=== PATIENT | male | born 1965 ===

== ENCOUNTER 2024-05-11 09:11 | Outpatient (REF) | payer OTHER, SELFPAY ==
--- NOTE | ~2024-05-11 | XR_ITS ---
EXAMINATION: XR KNEE, RIGHT CLINICAL INFORMATION: Pain. COMPARISON: None available. TECHNIQUE: AP standing view of bilateral knees and 2 views of the right knee. FINDINGS: AP standing view of the right knee: Moderate narrowing of the medial compartment with mild narrowing of the lateral compartment. Small medial and lateral marginal osteophytes. Left knee: Mild narrowing of the medial and lateral compartments. Moderate left joint effusion. Large superior patellar spur with faint ossific/calcific calcifications along the suprapatellar tendon which is possibly thickened. Advanced degenerative changes in the left patellofemoral compartment with joint space narrowing and hypertrophic change. XR/XR knee RT 3V IMPRESSION: 1. Moderate degenerative changes right knee. 2. Advanced degenerative changes left patellofemoral compartment. 3. Moderate left joint effusion. 4. Large superior patellar spur with faint ossific/calcific calcifications along the suprapatellar tendon which is possibly thickened.
== END 2024-05-11 09:12 | disposition home or self-care (01) ==
LOC: HO.HOSX 09:11
PROVIDERS: Visit Provider Orthopaedic Surgery
DX: M17.31 Unilateral post-traumatic osteoarthritis, right knee (principal); M21.161 Varus deformity, not elsewhere classified, right knee
CPT/HCPCS: 73562

== ENCOUNTER 2024-05-11 12:34 | Outpatient (AMB) | payer OTHER, SELFPAY ==
--- NOTE | 2024-05-11 12:37 | MHC.OFFVIS ---
Vital Signs 05/11/24 12:50 Height 5 ft 9 in Weight 152 lb BMI 22.4 Intake Visit Reasons: [facility] [employer]-Right knee pain/possibly discuss surgery Intake Note: Jair is a 58 year old male who presents today as a new patient with complaints of right knee pain.Patient reports that his knee has been painful for many years now. He has had previous cortisone injections, last one being about 8 years ago. Has also had surgery on this knee due to a patella fracture. Allergies No Known Allergies Allergy (Verified 05/11/24 12:48) HPI HPI [facility] [facility] [employer]-Right knee pain/possibly discuss surgery: Details: Jair is a 58 year old male who presents today as a new patient with complaints of right knee pain.Patient reports that his knee has been painful for many years now. He has had previous cortisone injections and doesn't want more because he feels like they don't help are are just a band-aid . Has also had surgery on this knee due to a patella fracture many years ago. He is unable to walk for more than a few minutes because of pain. He limps everywhere and is frustrated that he cannot walk without pain. [facility] Surgical History (Updated 05/11/24 @ 12:50 by Tonja Mccoy [facility]) History of thumb surgery Hx of eye surgery H/O right knee surgery Physical Exam Vital Signs: BMI result Body Mass Index 22.4 Extrem Other: Moderate varus malalignment 10-120 deg motion medial and lateral compartment ttp dp+2 Results Reviewed Results Reviewed: I personally reviewed relevant radiographs. Severe post traumatic OA right knee, varus pattern Assessment & Plan Assessment & Plan (1) Post-traumatic osteoarthritis of knee: Code(s): M17.30 - Unilateral post-traumatic osteoarthritis, unspecified knee Category: Medical Plan: This ia a healthy 58 yo disable M with right knee pain that prevents him from walking. He has post traumatic osteoarthritis and has been suffering for yearts. He cannot walk without pain and a limp and feels that nothing has helped him. Injections and non narcotic OTC analgesics have not been helpful. He is Otherwaise healthy and feels that the quality of his life is diminished. He has limited motion and varus gait pattern. His radiographs reveal severe arthritic changes of the medial and anterior compartment. I discussed treatment options with him including PT, injections and surgery. He doesn't want injections and I recommend knee arthroplasty. He is limited by pain and has post traumatic arthritis. I discussed this with him and he is amenable to the plan. I discussed the risks benefits and alternatives including but not limited to the risk of pain, infection, stiffness, need for further surgery as well as potential medical complications such as blood clots, pulmonary embolism and cardiac complications. I discussed the importance of post operative PT and the time frame for recovery. He expressed understanding and we will begin the pre operative clearance process. I introduced him to out nurse navigator. (2) Varus deformity of knee: Code(s): M21.169 - Varus deformity, not elsewhere classified, unspecified knee Category: Medical Plan: Orders: Orders XR knee RT 3V 05/11/24 M25.561 - Pain in right knee Coding Level of Care Code New Pt Level 4 (38007) Diagnoses Post-traumatic osteoarthritis of knee M17.30 Varus deformity of knee M21.169
[2024-05-11 12:50] VITALS: BMI 22.4
== END 2024-05-11 13:26 | disposition home or self-care (01) ==
PROVIDERS: PCP Nurse Practitioner Family; Visit Provider Orthopaedic Surgery
DX: M17.30 Unilateral post-traumatic osteoarthritis, unspecified knee (principal); M21.161 Varus deformity, not elsewhere classified, right knee
CPT/HCPCS: 99204

== ENCOUNTER 2024-06-07 11:59 | Outpatient (REF) | payer OTHER, SELFPAY | END 2024-06-07 12:00 | disposition home or self-care (01) | LOC: HO.HOSX 11:59 | PROVIDERS: Visit Provider Orthopaedic Surgery | DX: Z13.89 Encounter for screening for other disorder (principal) ==

== ENCOUNTER 2024-06-25 12:19 | Outpatient (AMB) | payer OTHER, SELFPAY ==
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
[2024-06-25 12:25] VITALS: BMI 22.4
== END 2024-06-25 13:25 | disposition home or self-care (01) ==
PROVIDERS: PCP Nurse Practitioner Family; Visit Provider Orthopaedic Surgery
DX: M75.101 Unspecified rotator cuff tear or rupture of right shoulder, not specified as traumatic (principal)
CPT/HCPCS: 99213

== ENCOUNTER → 2024-06-25 12:19 | Outpatient (BNVA) | payer OTHER, SELFPAY | PROVIDERS: PCP Nurse Practitioner Family; Visit Provider Orthopaedic Surgery ==

== ENCOUNTER 2024-08-06 14:26 | Outpatient (AMB) | payer OTHER, SELFPAY ==
[2024-08-06 14:47] VITALS: BMI 22.4
--- NOTE | 2024-08-06 14:47 | A.OFFVIS_ITS ---
Vital Signs 08/06/24 14:47 Height 5 ft 9 in Weight 152 lb BMI 22.4 Intake Visit Reasons: R knee pain; discuss injections VS surgery Intake Note: Jair is a 59 year old male who presents today for a follow up of his right knee OA. We have previously discussed that a TKA is recommended and he presents today to discuss injections versus surgical interventions. Allergies No Known Allergies Allergy (Verified 06/25/24 12:31) HPI HPI R knee pain; discuss injections VS surgery: Details: This is a 59-year-old gentleman with right knee osteoarthritis who comes in today with minimal right knee pain. He states he has been exercising and feels better than he has in the past. The injection I gave him in the past was helpful. He is more concerned about his jaw. He has chronic swelling after fracture. His right knee does not really bother him very much. He states on a scale of 1-10 in terms of 10 being perfect and 1 being bad his knee is a 7.5. [facility] Surgical History (Updated 05/11/24 @ 12:50 by Tonja Mccoy [facility]) History of thumb surgery Hx of eye surgery H/O right knee surgery Physical Exam Vital Signs: BMI result Body Mass Index 22.4 Extrem Other: Moderate varus malalignment 3-125 no effusion no ttp Assessment & Plan Assessment & Plan (1) Post-traumatic osteoarthritis of knee: Code(s): M17.30 - Unilateral post-traumatic osteoarthritis, unspecified knee Category: Medical Plan: 59 yo with right knee OA that is stable and improved from prior. No intervention warranted. If pain returns would reconsider injections. Coding Level of Care Code Est Pt Level 3 (41309) Diagnoses Post-traumatic osteoarthritis of knee M17.30
== END 2024-08-06 15:01 | disposition home or self-care (01) ==
PROVIDERS: PCP Nurse Practitioner Family; Visit Provider Orthopaedic Surgery
DX: M17.30 Unilateral post-traumatic osteoarthritis, unspecified knee (principal)
CPT/HCPCS: 99213

== ENCOUNTER → 2024-08-06 14:26 | Outpatient (BNVA) | payer OTHER, SELFPAY | PROVIDERS: PCP Nurse Practitioner Family; Visit Provider Orthopaedic Surgery ==